=== PATIENT | male | born 1970 | race Caucasian/White ===

== ENCOUNTER → 2025-02-03 | Outpatient (CLI) | payer BC, SELFPAY ==
--- NOTE | 2025-02-03 08:00 | XR_ITS ---
Examination: CT chest, without intravenous contrast. Sagittal and coronal 2-D reconstructions. Exam date and time: February 03, 2025 0811 hours Comparison December 25, 2023 INDICATIONS: CT chest December 25, 2023 numerous subcentimeter bilateral pulmonary nodules, smoking history 30 years CTDI:vol (mGy) 11 DLP: (mGycm) 170 Technique: Multiple 3.0 mm axial sections of the chest to been obtained. Bone and lung density settings are obtained. Sagittal and coronal 2-D reconstructions have been obtained. Low dose protocols were performed. One or more of the following dose reduction techniques were used; automated exposure control, adjustment of the mA and/or KV according to patient size, use of iterative reconstruction technique. Findings: No thoracic aortic aneurysmal dilatation Pulmonary artery segments are not enlarged. No paratracheal tracheobronchial or bronchopulmonary adenopathy Bilateral numerous subcentimeter pulmonary nodules again noted Pulmonary nodule in the right middle lobe, axial image 250 measures 4 mm compared to 3 mm on December 25, 2023 Atelectasis in the lingular segment No visualized liver splenic lesion Contracted gallbladder IMPRESSION: Again noted numerous bilateral subcentimeter pulmonary nodules Pulmonary nodule in the right middle lobe, axial image 250, measures 4 mm on the current study compared to 2 mm on December 25, 2023, suggest continued 6 month follow-up CT chest without contrast
== END | disposition home or self-care (01) ==
PROVIDERS: Referring Provider Family Medicine; Visit Provider Family Medicine
DX: R91.8 Other nonspecific abnormal finding of lung field (principal)
CPT/HCPCS: 71271